=== PATIENT | female | born 1950 | race Caucasian/White ===

== ENCOUNTER 2018-08-27 21:38 | Emergency (ER) | payer OTHER ==
[~2018-08-27] VITALS: Ht 160 cm; Wt 47.6 kg
[~2018-08-27 21:38] MED LIST: ACYCLOVIR 800800 MG PO; ADVAIR HFA 230M12 GM INH; AMBIEN CR12.5 MG PO; ATIVAN0.5 MG PO; AZELASTINE137 MCG/0. NS; BACTRIM DS TAB1 EACH PO; BENICAR HCT 401 EACH PO; BENICAR20 MG PO; CALCIUM + VITA1 EACH PO; CARISOPRODOL 3350 MG PO; CELEXA20 MG PO; CLOBEX59 M1 TP; CLOBEX59 ML TP; DIFLUCAN200 MG PO; DYMISTA NASAL S23 GM NS; EMLA CREAM; FLONASE 0.05%50 MCG NASAL; HYDROXYZINE HCL10 M1 PO; MAGIC MOUTHWASH SWISH&SPIT; MUCINEX TA600 MG/TA2 PO; NEXIUM40 MG PO; NYSTATIN 100,0015 G1 TP; NYSTATIN 1100000 U/M SW&SWALLOW; ONDANSETRON HCL8 MG PO; PERCOCET PO; PREDNISONE 10 M10 MG PO; PROMETHAZINE/C118 ML PO; TESSALON PERLE100 MG PO; TOPROL XL50 MG PO; VENTOLIN HFA 1818 GM INH; VITAMIN D3400 UNIT PO; ZOLOFT50 MG PO
[2018-08-27 22:21] LABS: HEMOGLOBIN 8.1 gm/dL (12.0-15.0); MCH 25.2 pg (26.0-34.0); MCHC 32.3 g/dL (28.0-37.0); MCV 77.8 fL (80.0-100.0); PLATELET COUNT 217 thou/uL (150-400); RBC 3.21 mil/uL (4.20-5.00); RDW 29.8 % (10.5-14.5); WBC 6.9 thou/uL (4.0-11.0)
[2018-08-27] MEDS ORDERED: REVLIMID15 MG PO (22:36)
[2018-08-27] MEDS ORDERED: ZOFRAN ODT4 MG PO (22:38)
[2018-08-27] MEDS ORDERED: KLOR-CON 1010 MEQ PO (22:38)
[2018-08-27] MEDS ORDERED: ERYTHROMYCIN250 M1 PO (22:39)
[2018-08-27] MEDS ORDERED: PERCOCET PO (22:39)
[2018-08-27] MEDS ORDERED: MYRBETRIQ25 MG PO (22:40)
[2018-08-27] MEDS ORDERED: BENADRYL25 MG PO (22:40)
[2018-08-27] MEDS ORDERED: CLOBETASOL PROP50 ML TOP (22:42)
[2018-08-27 22:43] LABS: CALCIUM 8.7 mg/dL (8.5-10.1); CREATININE 1.3 mg/dL (0.6-1.0); POTASSIUM 3.4 mmol/L (3.5-5.1)
[2018-08-27] MEDS ORDERED: HYDROXYZINE HCL25 M1 PO (22:43)
[2018-08-27] MEDS ORDERED: LOPRESSOR50 PO (22:43)
[2018-08-27] MEDS ORDERED: FLOVENT HFA 4444 MCG INH (22:44)
[2018-08-27] MEDS ORDERED: ATIVAN0.5 MG PO (22:44)
[2018-08-27] MEDS ORDERED: NEXIUM40 MG PO (22:45)
[2018-08-27] MEDS ORDERED: PROAIR HFA8.5 GM INH (22:53)
[2018-08-27] MEDS ORDERED: CARISOPRODOL 3350 MG PO (22:53)
[2018-08-27 22:54] LABS: ALBUMIN 2.9 g/dL (3.4-5.0); DIRECT BILIRUBIN 0.1 mg/dL (<0.1-0.3); MAGNESIUM 1.6 mg/dL (1.8-2.4); TOTAL BILIRUBIN 0.4 mg/dL (<0.1-1.0); TOTAL PROTEIN 6.2 g/dL (6.4-8.2)
[2018-08-27] MEDS ORDERED: AMBIEN CR12.5 MG PO (22:55)
[2018-08-27 23:49] LABS: ABSOLUTE NEUTROPHILS 4.7 thou/uL (1.4-8.2); METAMYELOCYTES 1 %
[2018-08-27 23:50] LABS: ANISOCYTOSIS 3+; HYPOCHROMASIA 1+; MICROCYTES 1+; PLATELET ESTIMATE NORMAL; SCHISTOCYTES 1+
[2018-08-28 01:02] VITALS: BP 121/75
== END 2018-08-28 01:10 | disposition home or self-care (01) ==
LOC: ER 21:38
PROVIDERS: Emergency Medicine
DX: D64.9 Anemia, unspecified (principal); R19.7 Diarrhea, unspecified; R53.1 Weakness; I25.10 Atherosclerotic heart disease of native coronary artery without angina pectoris; E78.5 Hyperlipidemia, unspecified; I10 Essential (primary) hypertension; F17.210 Nicotine dependence, cigarettes, uncomplicated; Z88.1 Allergy status to other antibiotic agents; Z88.8 Allergy status to other drugs, medicaments and biological substances; Z90.710 Acquired absence of both cervix and uterus